=== PATIENT | male | born 1995 | race Hispanic/Latino ===

== ENCOUNTER 2018-02-25 09:17 | Emergency (ER) | payer SELFPAY ==
[~2018-02-25] VITALS: Ht 180.3 cm; Wt 81.7 kg
[2018-02-25] MEDS ORDERED: VENTOLIN HFA18 GM INH ×2 (09:21→09:42)
[2018-02-25] MEDS ORDERED: SYMBICORT 16010.2 GM INH ×2 (09:23→09:42)
[2018-02-25] MEDS ORDERED: PREDNISONE20 MG PO (09:42)
== END 2018-02-25 10:21 | disposition home or self-care (01) ==
LOC: ED 09:17
DX: J45.901 Unspecified asthma with (acute) exacerbation (principal); F17.200 Nicotine dependence, unspecified, uncomplicated
CPT/HCPCS: 99284; J7512